=== PATIENT | female | born 1935 | race Caucasian/White ===

== ENCOUNTER 2023-08-08 00:50 | Inpatient (IN) | payer MEDICARE ==
[2023-08-08] MEDS ORDERED: Furosemide 40 MG/4 ML VIAL ONE ×2 (00:54→06:00)
[2023-08-08] MEDS ORDERED: Nitroglycerin 2% Ointment 1 INCH/1 GM Packet ONE (00:57)
[2023-08-08] MEDS ORDERED: Aspirin Chewable 81 MG TAB ONE (01:15)
[2023-08-08 01:18] LABS: Actual Bicarbonate (HCO3a) 24.6 mEq/L (22-28); Analyzer IN Cardio ER; Base Excess (BEa) -0.5 mEq/L (-2.0 to +3.0); CO2 Tension 42.6 mmHg (35.0-45.0); Calcium, Ionized (arterial) 1.17 mmol/L (1.12-1.30); Carboxyhemoglobin (COHb) 0.5 gm% (0.0-3.0); Hematocrit-ABG 35 % (36.0-47.0); Hemoglobin (Hb) 11.9 g/dL (12.0-16.0); Potassium - ABG Lab 3.44 mmol/L (3.70-5.30)
[2023-08-08 01:24] LABS: O2 Tension (PaO2), arterial 53.1 mmHg (> 60.0)
[2023-08-08 01:25] LABS: #Basophils 0.1 thou/uL (0.0-0.2); #Eosinphils 0.2 thou/uL (0.0-0.7); #Monocytes 0.5 thou/uL (0.11-0.59); #Neutrophils 11.8 thou/uL (1.40-6.50); %Basophils 0.5 % (0.0-1.0); %Eosinophils 1.5 % (0.0-10.0); %Lymphocytes 4.4 % (21.0-51.0); %Monocytes 3.8 % (0.0-10.0); %Neutrophils 89.3 % (42.0-75.0); Hematocrit 35.5 % (36.0-47.0); Hemoglobin 11.4 g/dL (12.0-16.0); Mean Corpuscular HGB CONC 32.1 g/dL (32.0-36.0); Mean Corpuscular Hemoglobin 32.5 pg (27.0-31.0); Mean Corpuscular Volume 101.1 fl (78.0-98.0); Mean Platelet Volume 10.4 fL (7.4-10.4); Platelet Count 350 10x3/uL (130-400); RBC Distribution Width 16.4 % (11.5-14.5); Red Blood Cell (RBC) Count 3.51 mill/uL (4.20-5.40); White Blood Cell (WBC) Count 13.2 10x3/uL (4.8-10.8)
[2023-08-08 01:47] LABS: Bacteria/HPF 2+ HPF (None Seen); Bilirubin Negative (Negative); Blood, Urine Negative (Negative); CAUTI Indications for Culture Dysuria,urgency,freq; Clarity Clear (Clear); Glucose, Urine (Dipstick) 300 mg/dL (Negative); Ketone, Urine Negative (Negative); Leukocyte 250 Leu/uL (Negative); Nitrite 2+ (Negative); Protein, Urine (Dipstick) 20 mg/dL (Neg-Trace); RBC/HPF 0-3 HPF (0-3); Specific Gravity, Urine 1.011 (1.002-1.036); Squamous Epithelial 0-3 HPF (0-3); Urobilinogen Normal mg/dL (Less than 2); WBC/HPF 21-50 HPF (0-3); pH, Urine 5.5 (5.0-9.0)
[2023-08-08 01:49] LABS: ALT (SGPT) 18 U/L (8-55); AST (SGOT) 26 U/L (5-34); Albumin 4.1 g/dL (3.4-4.8); Alkaline Phosphatase 90 U/L (40-110); Anion Gap 20 mmol/L (10-20); BUN (Urea Nitrogen) 49 mg/dL (9.8-20.1); Bilirubin, Total 0.4 mg/dL (0.2-1.2); Calc. Creatinine Clearance 0 mL/min (70-130); Calcium 9.6 mg/dL (7.8-10.44); Carbon Dioxide 21 mmol/L (23-31); Chloride 102 mmol/L (98-107); Estimated GFR 22; Globulin 4.5 g/dL (2.4-3.5); Glucose 168 mg/dL (83-110); Lipase 26 U/L (8-78); Potassium 3.5 mmol/L (3.5-5.1); Protein, Total 8.6 g/dL (5.8-8.1); Sodium 139 mmol/L (136-145)
[2023-08-08 01:58] LABS: Troponin I 0.011 ng/mL (< 0.028)
[2023-08-08 02:00] LABS: Urine Culture Reflex Yes Yes
[2023-08-08] MEDS ORDERED: LevoFLOXacin 750 mg/D5W 150 ml Premix Bag ONE (02:22)
[2023-08-08] MEDS ORDERED: Ondansetron ODT 4 MG TAB PO PRN (03:17)
[2023-08-08] MEDS ORDERED: Calcium Carbonate 500 MG ChewTAB PO PRN (03:17)
[2023-08-08] MEDS ORDERED: Ipratropium/Albuterol 3 ML NEB NEB PRN (03:24)
[2023-08-08] MEDS ORDERED: Electrolyte Replacement Protocol 1 EACH FS SCH (03:45)
[2023-08-08 03:57] LABS: Hemoglobin A1c 4.5 % (4.0-6.0)
[2023-08-08] MEDS: Furosemide 40 MG/4 ML VIAL SLOW IVP SCH ×2 (06:02→14:38)
[2023-08-08] MEDS ORDERED: Potassium Chloride 20 MEQ TAB PO SCH (08:00)
[2023-08-08 08:52] VITALS: BMI 29.1
[2023-08-08] MEDS ORDERED: Aspirin Chewable 81 MG TAB PO SCH (09:00)
[2023-08-08] MEDS ORDERED: Famotidine 20 MG TAB PO SCH (09:00)
[2023-08-08] MEDS ORDERED: FLU VACC QS2023(65UP)/MF59C/PF 60 MCG/0.5 ML SYRINGE IM ONE (09:00)
[2023-08-08] MEDS: Apixaban 2.5 MG TAB PO SCH ×2 (10:00→22:43)
[2023-08-08] MEDS ORDERED: Amiodarone 200 MG TAB PO SCH (11:03)
[2023-08-08 13:58] LABS: Potassium 3.8 mmol/L (3.5-5.1)
[2023-08-08] MEDS: NIFEdipine XL 30 MG ER.TAB PO SCH (22:42)
[2023-08-08] MEDS: Carvedilol 6.25 MG TAB PO SCH (22:42)
[2023-08-08] MEDS: Rosuvastatin 10 MG TAB PO SCH (22:42)
[2023-08-09] MEDS: Furosemide 40 MG/4 ML VIAL SLOW IVP SCH ×2 (05:53→15:44)
[2023-08-09] MEDS ORDERED: Ferrous Sulfate 325 MG TAB PO SCH (08:00)
[2023-08-09 08:39] LABS: #Monocytes 0.6 thou/uL (0.11-0.59); #Neutrophils 10.4 thou/uL (1.40-6.50); %Basophils 0.1 % (0.0-1.0); %Lymphocytes 4.4 % (21.0-51.0); %Monocytes 5.1 % (0.0-10.0); %Neutrophils 89.8 % (42.0-75.0); Mean Corpuscular Hemoglobin 32.2 pg (27.0-31.0); Mean Corpuscular Volume 104.1 fl (78.0-98.0); Mean Platelet Volume 10.3 fL (7.4-10.4); Platelet Count 279 10x3/uL (130-400); RBC Distribution Width 16.3 % (11.5-14.5); Red Blood Cell (RBC) Count 2.42 mill/uL (4.20-5.40); White Blood Cell (WBC) Count 11.6 10x3/uL (4.8-10.8)
[2023-08-09 08:47] LABS: Hematocrit 25.2 % (36.0-47.0); Hemoglobin 7.8 g/dL (12.0-16.0)
[2023-08-09] MEDS ORDERED: Clopidogrel Bisulfate 75 MG TAB PO SCH (09:00)
[2023-08-09 10:41] LABS: Albumin 3.2 g/dL (3.4-4.8)
[2023-08-09 10:43] LABS: Calcium 8.8 mg/dL (7.8-10.44); Chloride 106 mmol/L (98-107); Potassium 3.6 mmol/L (3.5-5.1); Sodium 143 mmol/L (136-145)
[2023-08-09 10:44] LABS: Globulin 3.4 g/dL (2.4-3.5); Glucose 127 mg/dL (83-110); Protein, Total 6.6 g/dL (5.8-8.1)
[2023-08-09 10:46] LABS: Anion Gap 17 mmol/L (10-20); Bilirubin, Total 0.3 mg/dL (0.2-1.2); Carbon Dioxide 24 mmol/L (23-31)
[2023-08-09 10:47] LABS: Alkaline Phosphatase 59 U/L (40-110); Calc. Creatinine Clearance 25 mL/min (70-130); Estimated GFR 24
[2023-08-09 10:48] LABS: BUN (Urea Nitrogen) 68 mg/dL (9.8-20.1)
[2023-08-09 10:49] LABS: AST (SGOT) 17 U/L (5-34)
[2023-08-09 10:50] LABS: ALT (SGPT) 13 U/L (8-55); Magnesium 2.7 mg/dL (1.6-2.6)
[2023-08-09] MEDS: NIFEdipine XL 30 MG ER.TAB PO SCH ×2 (10:51→20:16)
[2023-08-09] MEDS: Amiodarone 200 MG TAB PO SCH (10:52)
[2023-08-09] MEDS: Carvedilol 6.25 MG TAB PO SCH ×2 (10:53→20:17)
[2023-08-09] MEDS: Apixaban 2.5 MG TAB PO SCH (10:53)
[2023-08-09] MEDS: Empagliflozin 10 MG TAB PO SCH (10:57)
[2023-08-09 13:53] LABS: Hemoglobin 9.1 g/dL (12.0-16.0)
[2023-08-09] MEDS: Acetaminophen 325 MG TAB PO PRN ×2 (17:10→22:04)
[2023-08-09] MEDS: Rosuvastatin 10 MG TAB PO SCH (20:17)
[2023-08-10] MEDS ORDERED: LevoFLOXacin 500 mg/D5W 500 MG in Premix 1 BAG IVPB SCH (02:00)
[2023-08-10] MEDS: Furosemide 40 MG/4 ML VIAL SLOW IVP SCH ×2 (05:04→16:13)
[2023-08-10 05:37] LABS: #Eosinphils 0.1 thou/uL (0.0-0.7); #Monocytes 0.7 thou/uL (0.11-0.59); #Neutrophils 7.4 thou/uL (1.40-6.50); %Basophils 0.2 % (0.0-1.0); %Eosinophils 0.7 % (0.0-10.0); %Lymphocytes 13.7 % (21.0-51.0); %Monocytes 7.2 % (0.0-10.0); %Neutrophils 77.8 % (42.0-75.0); Hematocrit 20.3 % (36.0-47.0); Hemoglobin 6.4 g/dL (12.0-16.0); Mean Corpuscular HGB CONC 31.5 g/dL (32.0-36.0); Mean Corpuscular Hemoglobin 31.4 pg (27.0-31.0); Mean Platelet Volume 10.6 fL (7.4-10.4); Platelet Count 261 10x3/uL (130-400); RBC Distribution Width 15.8 % (11.5-14.5); Red Blood Cell (RBC) Count 2.04 mill/uL (4.20-5.40); White Blood Cell (WBC) Count 9.5 10x3/uL (4.8-10.8)
[2023-08-10 05:49] LABS: Mean Corpuscular Volume 99.5 fl (78.0-98.0)
[2023-08-10 06:10] LABS: Anion Gap 17 mmol/L (10-20); BUN (Urea Nitrogen) 99 mg/dL (9.8-20.1); Calc. Creatinine Clearance 25 mL/min (70-130); Calcium 8.7 mg/dL (7.8-10.44); Carbon Dioxide 23 mmol/L (23-31); Cardiac Risk 3.2 (Less than 4.5); Chloride 103 mmol/L (98-107); Cholesterol 109 mg/dl (< 200 Desired); Estimated GFR 25; Glucose 92 mg/dL (83-110); HDL Cholesterol 34 mg/dL (>60 Neg Risk); LDL Cholesterol, Calculated 53 mg/dL; Potassium 3.3 mmol/L (3.5-5.1); Sodium 140 mmol/L (136-145); Triglycerides 110 mg/dL (Less than 150)
[2023-08-10 07:26] LABS: Magnesium 2.4 mg/dL (1.6-2.6)
[2023-08-10] MEDS ORDERED: Potassium Chloride 20 MEQ TAB PO SCH (08:00)
[2023-08-10] MEDS: Amiodarone 200 MG TAB PO SCH (08:28)
[2023-08-10] MEDS: NIFEdipine XL 30 MG ER.TAB PO SCH ×2 (08:28→20:27)
[2023-08-10] MEDS: Empagliflozin 10 MG TAB PO SCH (08:29)
[2023-08-10] MEDS: Carvedilol 6.25 MG TAB PO SCH ×2 (08:29→20:27)
[2023-08-10] MEDS ORDERED: Lidocaine 1% PF 5 ML VIAL ONE (09:55)
[2023-08-10] MEDS ORDERED: ePHEDrine Sulfate 50 MG/10 ML VIAL ONE (09:55)
[2023-08-10] MEDS ORDERED: PHENYLEPHRINE-NS 100 MCG/ML 10 ML SYRINGE ONE (09:55)
[2023-08-10] MEDS ORDERED: PROPOFOL 200 MG/20 ML VIAL ONE (09:55)
[2023-08-10] MEDS ORDERED: Promethazine HCl 25 MG/ML VIAL IM PRN (10:36)
[2023-08-10] MEDS ORDERED: Ondansetron HCl/PF 4 MG/2 ML Vial IVP PRN (10:36)
[2023-08-10] MEDS: Pantoprazole 40 MG VIAL IVP SCH (20:27)
[2023-08-10] MEDS: Rosuvastatin 10 MG TAB PO SCH (20:27)
[2023-08-11 03:52] VITALS: TEMP 97.1
[2023-08-11 05:10] LABS: #Eosinphils 0.2 thou/uL (0.0-0.7); #Monocytes 0.6 thou/uL (0.11-0.59); #Neutrophils 6.2 thou/uL (1.40-6.50); %Basophils 0.1 % (0.0-1.0); %Eosinophils 2.1 % (0.0-10.0); %Lymphocytes 12.7 % (21.0-51.0); %Monocytes 7.9 % (0.0-10.0); %Neutrophils 76.7 % (42.0-75.0); Hematocrit 23.7 % (36.0-47.0); Hemoglobin 7.6 g/dL (12.0-16.0); Mean Corpuscular HGB CONC 32.1 g/dL (32.0-36.0); Mean Corpuscular Hemoglobin 32.1 pg (27.0-31.0); Mean Platelet Volume 10.7 fL (7.4-10.4); Platelet Count 241 10x3/uL (130-400); RBC Distribution Width 16.9 % (11.5-14.5); Red Blood Cell (RBC) Count 2.37 mill/uL (4.20-5.40); White Blood Cell (WBC) Count 8.1 10x3/uL (4.8-10.8)
[2023-08-11 05:38] LABS: Anion Gap 13 mmol/L (10-20); BUN (Urea Nitrogen) 70 mg/dL (9.8-20.1); Calc. Creatinine Clearance 27 mL/min (70-130); Calcium 8.4 mg/dL (7.8-10.44); Carbon Dioxide 26 mmol/L (23-31); Chloride 107 mmol/L (98-107); Estimated GFR 27; Glucose 81 mg/dL (83-110); Sodium 143 mmol/L (136-145)
[2023-08-11] MEDS: Furosemide 40 MG/4 ML VIAL SLOW IVP SCH (06:10)
[2023-08-11] MEDS: Acetaminophen 325 MG TAB PO PRN (06:18)
[2023-08-11] MEDS ORDERED: Potassium Chloride 20 MEQ TAB PO SCH (08:00)
[2023-08-11] MEDS: NIFEdipine XL 30 MG ER.TAB PO SCH (09:12)
[2023-08-11] MEDS: Carvedilol 6.25 MG TAB PO SCH (09:13)
[2023-08-11] MEDS: Amiodarone 200 MG TAB PO SCH (09:14)
[2023-08-11] MEDS: Empagliflozin 10 MG TAB PO SCH (09:15)
[2023-08-11 09:16] VITALS: BP 112/58
[2023-08-11] MEDS: Pantoprazole 40 MG VIAL IVP SCH (09:16)
== END 2023-08-11 12:20 | disposition home or self-care (01) | DRG 291 ==
LOC: ERS 00:50 → ERHOLD 03:16 → IMCU/EMU 08:01 → 2SE 17:41
PROVIDERS: ADMIT Student in an Organized Health Care Education/Training Program; ATTEND Hospitalist
PROC: 4A033R1 Measurement of Arterial Saturation, Peripheral, Percutaneous Approach (ICD-10-PCS; 2023-08-08)
PROC: 5A09357 Assistance with Respiratory Ventilation, Less than 24 Consecutive Hours, Continuous Positive Airway Pressure (ICD-10-PCS; 2023-08-08)
PROC: 0W3P8ZZ Control Bleeding in Gastrointestinal Tract, Via Natural or Artificial Opening Endoscopic (ICD-10-PCS; principal; 2023-08-10)
PROC: 3E033XZ Introduction of Vasopressor into Peripheral Vein, Percutaneous Approach (ICD-10-PCS; 2023-08-10)
DX: I13.0 Hypertensive heart and chronic kidney disease with heart failure and stage 1 through stage 4 chronic kidney disease, or unspecified chronic kidney disease (principal); I50.33 Acute on chronic diastolic (congestive) heart failure; J96.01 Acute respiratory failure with hypoxia; N39.0 Urinary tract infection, site not specified; N17.9 Acute kidney failure, unspecified; E87.20 Acidosis, unspecified; N18.4 Chronic kidney disease, stage 4 (severe); D62 Acute posthemorrhagic anemia; K92.1 Melena; B96.1 Klebsiella pneumoniae [K. pneumoniae] as the cause of diseases classified elsewhere; I87.2 Venous insufficiency (chronic) (peripheral); I44.0 Atrioventricular block, first degree; D53.9 Nutritional anemia, unspecified; I73.9 Peripheral vascular disease, unspecified; I48.0 Paroxysmal atrial fibrillation; E78.00 Pure hypercholesterolemia, unspecified; I35.0 Nonrheumatic aortic (valve) stenosis; I34.0 Nonrheumatic mitral (valve) insufficiency; D63.1 Anemia in chronic kidney disease; Z96.651 Presence of right artificial knee joint; Z96.0 Presence of urogenital implants; Z88.1 Allergy status to other antibiotic agents; Z98.890 Other specified postprocedural states; Z88.2 Allergy status to sulfonamides
CPT/HCPCS: 36415; 36430; 51702; 71045; 80048; 80053; 80061; 81001; 82607; 82805; 83036; 83605; 83690; 83735; 83880; 84484; 85025; 86850; 86900; 86901; 87040; 87077; 87086; 87186; 93005; 93010; 93306; 94660; 96365; 96375; 97139; C9113; J1940; J1956; J2704; P9016